=== PATIENT | female | born 1945 | race Caucasian/White ===

== ENCOUNTER 2022-04-28 11:38 | Day surgery (SDC) | payer MEDICARE ==
[2022-04-28] MEDS ORDERED: Depo-Medrol 40 MG/ML IM ONE (11:39)
[2022-04-28] MEDS ORDERED: LIDOCAINE HCL 1% 50 MG/5 ML VL PF IJ ONE (11:39)
[2022-04-28] MEDS ORDERED: BUPIVACAINE 0.5% VIAL IJ ONE (11:39)
--- NOTE | 2022-04-28 14:57 | XRAY ---
Indication: Left shoulder and subacromial bursa injection. Intraoperative fluoroscopy provided for 28 seconds. 6 digital spot images submitted for interpretation demonstrates needle tip projecting over the left glenohumeral joint superiorly. Second needle tip subacromial. Small amount of contrast injected for both needle tip placement.. Correlate with intraoperative findings/report.
--- NOTE | 2022-04-28 16:42 | XRAY ---
28 seconds of fluoroscopy was used in surgery for a left intra-articular and subacromial bursa injection.
== END 2022-04-28 14:50 | disposition home or self-care (01) ==
LOC: SDC-PAIN 11:38
PROVIDERS: ATTEND Psychiatry & Neurology Pain Medicine
DX: M75.52 Bursitis of left shoulder (principal); E11.9 Type 2 diabetes mellitus without complications; Z79.899 Other long term (current) drug therapy
CPT/HCPCS: 20610; 73030; 77002; 82947; J1030; J2001; Q9966